=== PATIENT | female | born 1975 | race Caucasian/White ===

== ENCOUNTER 2023-05-15 10:23 | Emergency (ER) | payer OTHER, SELFPAY ==
[2023-05-15 10:35] VITALS: BP 120/75; PULSE 68; RESP 16; TEMP 36.3; O2SAT 100
--- NOTE | 2023-05-15 11:17 | ED.FEMALEGU ---
HPI - Female Genitourinary General Chief complaint: Urogenital-Female Stated complaint: Urinary Problem Time Seen by Provider: 05/15/23 11:05 Source: patient, RN notes reviewed and old records reviewed Mode of arrival: ambulatory Limitations: no limitations History of Present Illness HPI Narrative: 48 year old female who presents to [facility] care with concern for urinary tract infection with some urgency and frequency of urination and difficulty starting stream of urine for the past 2-3 days, fatigue and some nausea with history of urinary tract infection with treatment of Cipro on 04/13/2023 for 10 days. Patient reports that she was diagnosed with chronic kidney disease in 2019. 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 MD elicited complaint: other (urgency, frequency and difficulty starting stream of urine) Pertinent past history: other (UTI, history of kidney disease) Onset (ago): day(s) (2-3 days) Vaginal discharge: none Vaginal bleeding: none Related Data Home Medications Medication Instructions Recorded Confirmed atorvastatin 20 mg tablet 20 mg PO DAILY 05/15/23 05/15/23 bupropion HCl 300 mg 24 hr tablet, 300 mg PO DAILY 05/15/23 05/15/23 extended release clonazepam 0.5 mg tablet See Rx Instructions .Route .COMPLEX 05/15/23 05/15/23 spironolactone 50 mg tablet 50 mg PO DAILY 05/15/23 05/15/23 Allergies Allergy/AdvReac Type Severity Reaction Status Date / Time lactose Allergy Unknown Verified 05/15/23 11:07 acetaminophen [From Vicodin] AdvReac Nausea and Verified 05/15/23 11:01 Vomiting hydrocodone [From Vicodin] AdvReac Nausea and Verified 05/15/23 11:01 Vomiting tramadol AdvReac Nausea and Verified 05/15/23 10:51 Vomiting several antibiotics Allergy Unknown Uncoded 05/15/23 11:02 decongestants AdvReac Other Uncoded 05/15/23 11:09 Review of Systems Review of Systems: CONSTITUTIONAL: Denies fever, chills, or sweats.reports fatigue CARDIOVASCULAR: Denies chest pain, palpitations, or edema. RESPIRATORY: Denies cough or dyspnea. GASTROINTESTINAL: Denies abdominal pain,states some nausea, no vomiting, or diarrhea. GENITOURINARY: Reports no dysuria, states some frequency, urgency, difficulty starting stream of urine Denies flank pain or hematuria. SKIN: Denies rash or itching. MUSCULOSKELETAL: Denies back pain or myalgia. Denies CVA tenderness NEUROLOGIC: Denies headache All systems reviewed & are unremarkable except as noted in HPI and below PMFSH Past Medical History Medical History (Updated 05/17/23 @ 09:34 by Leilani Ibanez NP) Depression Kidney disorder Lactose intolerance UTI (urinary tract infection) Surgical History Surgical History (Updated 05/17/23 @ 09:35 by Leilani Ibanez NP) H/O lumpectomy H/O tubal ligation History of facial surgery Hx of cholecystectomy Family History Family History (Updated 05/17/23 @ 09:35 by Leilani Ibanez NP) Other Kidney disorder Social History Social History (Updated 05/17/23 @ 09:41 by Leilani Ibanez NP) Smoking status: Current some day smoker Alcohol use details: no alcohol Substance use type: does not use Gender identity (if verbalized by the patient): Female Comments At time of signature, agree with nursing past medical, surgical, social and family history. There is no relevant family history pertinent to the presenting complaint Exam Narrative: GENERAL: Well-appearing, well-nourished, and in no acute distress. HEAD: Normocephalic, atraumatic. NECK: Supple.no lymphadenopathy CHEST: Clear to auscultation. No respiratory distress.[id number] on room air HEART: Regular rate and rhythm. No murmur heard. Normal peripheral pulses. ABDOMEN: Soft, nontender, nondistended, normal active bowel sounds. No CVA tenderness reports some urgency frequency and difficulty starting stream of urine with tiredness and so
== END 2023-05-15 11:30 | disposition home or self-care (01) ==
PROVIDERS: Emergency Provider Registered Nurse
DX: R35.0 Frequency of micturition (principal); F17.200 Nicotine dependence, unspecified, uncomplicated; F32.A Depression, unspecified
CPT/HCPCS: 81003; 99212; G0463